=== PATIENT | male | born 1955 | race Caucasian/White ===

== ENCOUNTER 2021-04-18 17:15 | Emergency (ER) | payer OTHER, MEDICAID ==
[~2021-04-18] VITALS: Ht 177.8 cm; Wt 85.3 kg
[2021-04-18 17:15] VITALS: BP_SYST 172
--- NOTE | 2021-04-18 20:50 | NUR ---
Patient ambulatory to chair for evaluation
--- NOTE | 2021-04-18 20:59 | NUR ---
DANILO Najera at bedside examining patient.
[2021-04-18] MEDS ORDERED: VANCOMYCIN HCL 1,000 MG in NS 250 ML IV ONE (21:15)
[2021-04-18] MEDS ORDERED: CLIN300C12 PO (21:29)
[2021-04-18] MEDS ORDERED: CLINDAMYCIN 600 mg/50mL D5W 50 ML IV ONE (21:30)
[2021-04-18 21:31] VITALS: BP_SYST 172
--- NOTE | 2021-04-18 21:31 | NUR ---
Patient does not wish to proceed with medical care recommended by Dr. Cornelius. Patient given information related to possible complications, up to and including , which could occur as a result of leaving hospital at this time. Patient verbalizes understanding of risks involved leaving against medical advice. Patient has signed AMA form.
== END 2021-04-18 21:31 | disposition left against medical advice (07) ==
LOC: SED 17:15
DX: L02.415 Cutaneous abscess of right lower limb (principal); Z79.899 Other long term (current) drug therapy
CPT/HCPCS: 99283